=== PATIENT | male | born 1965 | race African-American/Black ===

== ENCOUNTER 2019-09-08 11:54 | Emergency (ER) | payer MEDICARE ==
[~2019-09-08] VITALS: Ht 180.3 cm; Wt 119.3 kg
[2019-09-08 12:33] VITALS: BP 190/102
[2019-09-08] MEDS ORDERED: LISI-170 PO (12:57)
[2019-09-08] MEDS ORDERED: FURO20TA3 PO (12:57)
[2019-09-08] MEDS ORDERED: RANO10002 PO (12:57)
[2019-09-08] MEDS ORDERED: ALLO300T PO (12:57)
[2019-09-08 13:10] LABS: BASOPHILS % (AUTO) 2 % (0-1); EOSINOPHILS # (AUTO) 0.21 x10^3/uL (0-0.4); EOSINOPHILS % (AUTO) 2 % (1-7); LYMPHOCYTES # (AUTO) 2.81 x10^3/uL (1-3.4); LYMPHOCYTES % (AUTO) 27 % (22-44); MD NO; MEAN CORPUSCULAR HEMOGLOBIN 27.6 pg (27.5-34.5); MEAN CORPUSCULAR HGB CONC 32.7 g/dL (33.2-36.2); MEAN CORPUSCULAR VOLUME 84.5 fL (81-97); MEAN PLATELET VOLUME 8.9 fL (7.4-10.4); MONOCYTES # (AUTO) 0.65 x10^3/uL (0.2-0.8); MONOCYTES % (AUTO) 6 % (2-9); NEUTROPHILS # (AUTO) 6.74 x10^3/uL (1.8-6.8); NEUTROPHILS % (AUTO) 64 % (42-75); PLATELET COUNT 235 x10^3/uL (130-400); RED BLOOD COUNT 5.56 x10^6/uL (4.38-5.82); RED CELL DISTRIBUTION WIDTH 20.9 % (9.4-14.8)
--- NOTE | 2019-09-08 13:12 | NUR ---
PT IN [facility]OWN. PT PLACED ON CARDIAC AND VITALS MONITORS. LAB HAS BEEN IN TO DRAW BLOOD.
[2019-09-08 13:15] LABS: INTERNATIONAL NORMALIZED RATIO 0.94 (0.93-1.1)
[2019-09-08 13:17] LABS: ALBUMIN 3.4 g/dL (3.4-5.0); ANION GAP 4 mmol/L (5-15); CHLORIDE 112 mmol/L (98-107)
[2019-09-08 13:20] LABS: ALANINE AMINOTRANSFERASE 46 U/L (12-78); ALKALINE PHOSPHATASE 100 U/L (45-117); BILIRUBIN,TOTAL 0.5 mg/dL (0.2-1.0); CREATININE 1.22 mg/dL (0.7-1.3); TOTAL PROTEIN 6.9 g/dL (6.4-8.2)
--- NOTE | 2019-09-08 15:10 | NUR ---
Patient given discharge instructions and they have confirmed that they understand the instructions. Patient ambulatory with steady gait.
== END 2019-09-08 15:10 | disposition home or self-care (01) ==
LOC: ED 14:50
DX: K64.8 Other hemorrhoids (principal); I10 Essential (primary) hypertension
CPT/HCPCS: 36415; 80053; 83690; 85025; 85610; 85730; 86850; 86900; 93005; 99284